=== PATIENT | female | born 1985 | race Caucasian/White ===

== ENCOUNTER 2016-05-11 00:16 | Emergency (ER) | payer OTHER ==
[~2016-05-11 00:16] MED LIST: AMITRIPTYLINE H25 MG PO; AMITRYPTYLINE PO; DICLOFENAC PO; FLEXERIL10 MG PO; LORTAB 5-325 M1 EACH PO; NEURONTIN100 MG PO; XANAX1 MG PO; [UNRECOGNIZED DRUG - REMARK]
== END 2016-05-11 00:25 | disposition left against medical advice (07) ==
LOC: SED 00:16
DX: Z53.21 Procedure and treatment not carried out due to patient leaving prior to being seen by health care provider (principal)

== ENCOUNTER 2016-08-18 12:18 | Inpatient (IN) | payer OTHER ==
--- NOTE | ~2016-08-18 | CT2 ---
[facility] A Service of [facility] RADIOLOGY TEXT RESULTS PATIENT: MARISOL VARGAS LOCATION: C2A : 87 UNIT #: [id number] AGE: [address]: Yair Brumfield MD SEX: F ORDER DR: [id number] [facility] [address] [place], [place] [address] [id number] MR#: [id number] #: [id number] NAME: MARISOL VARGAS : 1985 SEX: F STUDY DATE/TIME: 08/18/2016 16:03 UNIT: C2A ROOM: 220 STUDY DESCRIPTION: CT Abd and Pelv W Cont Attending Physician: Beth Garcia M.D. Ordering Physician: Colin Richardson M.D. Primary Care Physician: Carmine Han M.D. MEDICAL IMAGING REPORT This report is preliminary unless electronic signature is present EXAM CT abdomen and pelvis. HISTORY Abdomen pain since last p.m. One-half pack per day smoker. Right upper quadrant pain. Chronic back pain, anxiety, Hepatitis C, former heroin abuse. This CT exam was performed with one or more of the following radiation dose reduction techniques: automatic exposure control, adjustment of mA and/or kV according to patient size, and iterative reconstruction. FINDINGS CT abdomen and pelvis performed with intravenous administration of 100 mL Isovue-370. Enteric contrast not administered. No prior CTs of abdomen or pelvis for comparison. Comparison with any prior studies would be useful. Patchy and linear densities bilateral lung bases more pronounced on the right than left, probably atelectatic in nature. Components of mild right basilar pneumonitis could be considered. The inferior heart and pericardium are unremarkable. Liver, gallbladder unremarkable. The spleen is enlarged measuring up to about 14.4 cm in craniocaudal extent. No focal parenchymal abnormality is seen. The pancreas and adrenal glands are unremarkable. The left kidney and ureter are unremarkable. In the mid-right kidney there is an exophytic slightly irregularly contoured hypodense structure measuring 1.7 cm x 2.6 cm x 1.7 cm. There is subtle hypodensity in the renal parenchyma adjacent to this exophytic structure and there is extensive perinephric haziness and fat stranding extending superiorly and inferiorly from this exophytic renal structure. There is some subtle enhancement of the wall of the exophytic renal structure. Findings suggest an infectious or inflammatory process, possibly renal abscess with associated perinephric inflammatory change. Possibly superinfection of preexisting renal cyst. The ascending colon extends STS. [facility] A Service of [facility] RADIOLOGY TEXT RESULTS PATIENT: MARISOL VARGAS LOCATION: C2A 220-01 : 87 UNIT #: [id number] AGE: [address]: Yair Brumfield MD SEX: F ORDER DR: adjacent to this area of inflammatory change. There may be some mild reactive thickening of the posterior wall of the ascending colon. The bulk of the inflammatory abnormality appears centered around the hypodense exophytic renal structure. There is a small cyst in the upper pole of the right kidney. There is no right-sided hydronephrosis or hydroureter. There is a small amount of free fluid in the pelvis. Not drainable fluid collection. Presumed in part physiologic in nature and in part related to the more cephalad perinephric inflammatory change. CT PELVIS: No inguinal adenopathy. Urinary bladder is unremarkable. Evidence of prior tubal ligation. Surgical clip in the deep pelvis posteriorly. No pelvic or retroperitoneal adenopathy. Distal esophagus, stomach, small bowel unremarkable. Appendix not clearly identified but no pericecal inflammatory change is seen. Aside from changes in the ascending colon adjacent to the perirenal inflammation, the remainder of colon is unremarkable. The vascular structures unremarkable. Bony structures show mild disc degenerative change lower lumbar spine. No acute-appearing bony abnormality. Returning to the right renal findings above, there is a subtle area of diminished density along the intrarenal aspect of the above described exophytic hypoechoic structure. This is further suggestive of etiology as unusual exophytic renal abscess or a superinfected cyst. The inflammatory change in the right perinephric fat measures approximately 8.8 cm in craniocaudal extent x about 2.3 cm x 4.8 cm transversely. IMPRESSION 1. Abnormal examination. Please see the complete dictation above for full details. Predominant abnormality is centered at the mid right kidney and has an appearance suggesting a mid-right renal abscess with extension into the right perinephric fat. There is an area of renal and extrarenal hypodensity with some peripheral enhancement measuring 1.7 cm x 2.6 cm x 1.7 cm. In the perinephric fat adjacent to this partially exophytic hypodense area there is extensive inflammatory haziness and stranding and there may be some associated perinephric fluid. The overall area of inflammatory change measures about 4.8 cm x 2.3 cm transversely x about 8.8 cm in craniocaudal extent. I favor that this is a renal abscess with perinephric extension. The possibility of superinfected preexisting cyst is not excluded but I have no prior studies for comparison. Along the renal parenchymal interface with this structure there is some subtle hypodense parenchyma likely reflecting inflammatory edema and further supportive of renal parenchymal abscess. It is unclear if this represents a drainable abscess. I would recommend short-interval CT followup after treatment for renal abscess to ensure short interval improvement or resolution. 2. Ascending colon is immediately adjacent to the inflammatory change and there is some mild wall thickening in the posterior wall of the ascending colon. I do not believe that this is a primary colonic STS. [facility] A Service of [facility] RADIOLOGY TEXT RESULTS PATIENT: MARISOL VARGAS LOCATION: C2A 220-01 : 87 UNIT #: [id number] AGE: [address]: Yair Brumfield MD SEX: F ORDER DR: abnormality. The wall thickening in the colon is likely sympathetic related to adjacent inflammation. 3. No other acute appearing renal abnormalities. 4. Spleen is enlarged measuring about 14.4 cm in craniocaudal extent. No focal splenic abnormality. 5. Small amount of free fluid in the pelvis. Not a drainable fluid collection. This may in part be physiologic in nature and in part related to the inflammatory change adjacent to the right kidney. 6. The appendix is not clearly identified. There are some small linear hyperdensities in the region of the cecum which could represent surgical clips in the context of prior appendectomy. Patient gives no stated history of prior appendectomy. I see no acute pericecal inflammatory change. 7. Prior tubal ligation. 8. Some patchy and linear densities bilateral lung bases, right greater than left, probably atelectasis. Mild right basilar pneumonitis not excluded. See remainder of incidental findings in body of report above. Dictated by... Reg Schuster M.D. THIS IS AN ELECTRONICALLY VERIFIED REPORT Reg Schuster M.D. at 08/19/2016 11:31 AM Elizabeth TD: 08/19/2016 03:36 JOB #: [id number] MEDICAL IMAGING REPORT Page 1 of 1 COPY
--- NOTE | ~2016-08-18 | CT5 ---
[facility] A Service of [facility] RADIOLOGY TEXT RESULTS PATIENT: MARISOL VARGAS LOCATION: C2A : 87 UNIT #: [id number] AGE: [address]: Yair Brumfield MD SEX: F ORDER DR: [id number] [facility] [address] [place], [place] [address] [id number] I MR#: [id number] #: [id number] NAME: MARISOL VARGAS : 1985 SEX: F STUDY DATE/TIME: 08/22/2016 7:59 UNIT: C2A ROOM: 220 STUDY DESCRIPTION: CT Abdomen W Cont Attending Physician: Yair Brumfield M.D. Ordering Physician: Carmine Roman M.D. Primary Care Physician: Carmine Han M.D. MEDICAL IMAGING REPORT This report is preliminary unless electronic signature is present EXAM CT of the abdomen with contrast INDICATION Renal abscess. This was identified on a prior CT from August 18, 2016. TECHNIQUE Axial CT images were obtained from the dome of the diaphragm through the symphysis pubis following the administration of intravenous contrast material. This CT exam was performed with one or more of the following radiation dose reduction techniques: automatic exposure control, adjustment of mA and/or kV according to patient size, and iterative reconstruction. FINDINGS Images through the lung bases demonstrate trace right pleural effusion which is new when compared to the prior study. There is also some increasing atelectasis at the lung bases bilaterally. This patient has a low-attenuation collection arising from the right kidney measuring up to about 1.6 x 1.4 cm. This is again favored to represent small renal abscess but is not amenable to percutaneous drainage due to its small size. Again however, it has decreased in size when compared to the prior study. I do think inflammatory stranding around the right kidney has increased when compared to the prior exam with some additional involvement seen along the right iliopsoas muscle. Again however, this all appears to be inflammatory stranding without discrete drainable abscess. Patient has some splenomegaly of uncertain clinical significance with the spleen measuring up 14.8 cm in craniocaudal dimensions. Liver appears unremarkable as is the gallbladder. The stomach and proximal small bowel are within normal limits as are the adrenal glands and left kidney. Pancreas appears normal. No new areas of STS. [facility] A Service of [facility] RADIOLOGY TEXT RESULTS PATIENT: MARISOL VARGAS LOCATION: [facility] 220-01 : 87 UNIT #: [id number] AGE: [address]: Yair Brumfield MD SEX: F ORDER DR: decreased attenuation are seen within the right kidney. There is some low-attenuation lesions seen within the superior pole of the right kidney which may reflect either a small cyst or potentially even another small abscess. Again however it is not amenable to percutaneous drainage. Inflammatory stranding is seen tracking along the right pericolic gutter. Again, which may have worsened when compared to the prior examination. Patient's ascending colon does appear mildly thick-walled in this area. Certainly there is no evidence of obstruction. Review of bony windows does not demonstrate any aggressive osseous abnormalities. IMPRESSION 1. The patient has a small hypoattenuating area arising from the right kidney favored to represent the small renal abscess. It actually appears smaller on today's study when compared to the prior exam from August 18, and remains unamenable to percutaneous drainage due to its small size. There is persistent inflammatory stranding seen around the right kidney in this area which I think has worsened when compared to the prior exam. Again I am unable to identify a discrete drainable abscess. An additional low attenuation is seen within the superior pole of the right kidney which was also present on the prior study and could reflect either cyst or abscess. Again it is not amenable to drainage. 2. Splenomegaly of uncertain clinical significance. Please see the body of the report for any additional incidental findings. STAT * RESULT Dictated by... Kandace Kenney M.D. THIS IS AN ELECTRONICALLY VERIFIED REPORT Kandace Kenney M.D. at 08/22/2016 3:36 PM JJ/maria d TD: 08/22/2016 14:19 JOB #: [id number] MEDICAL IMAGING REPORT Page 1 of 1 COPY
--- NOTE | ~2016-08-18 | HP ---
Unit #: [id number] #: [id number] Patient: MARISOL VARGAS [id number] [address] [place], [place] [address] [id number] I MR#: [id number] NAME: MARISOL VARGAS ROOM: 67305 Age: 31 Sex: F Admission Date: 08/18/2016 : 1985 Attending Physician: Beth Garcia M.D. Primary Care Physician: Carmine Han M.D. HISTORY AND PHYSICAL CHIEF COMPLAINT Abdominal pain. HISTORY OF PRESENT ILLNESS The patient is a 31-year-old female with past medical history of polysubstance abuse, anxiety, depression and chronic back pain, who presented to the emergency department for evaluation of the above. The patient states that she was seen in an urgent care facility about two weeks ago where she was diagnosed with a urinary tract infection and completed a course of Bactrim. She states that her last dose was yesterday. She states that initially she had burning with urination but those symptoms resolved. Today she awoke from sleep around 5:00 a.m. with severe pain in her right side. She describes it as "stabbing." She states that it has been constant in nature. There are no exacerbating or alleviating factors. She denies any similar pain. She also reports temperature of 102.2 this morning. She has had nausea but no vomiting. She denies any diarrhea. In the emergency department a CT of the abdomen and pelvis was done and showed findings concerning for right renal abscess with extension into perinephric fat. Dr. Richardson, the emergency room physician, spoke with Dr. Ruiz of urology who agrees to see the patient in consultation. She was given clindamycin and vancomycin. She is being admitted to [facility] for evaluation and further treatment. PAST MEDICAL HISTORY 1. Admission to [facility] April 23-2014 for depression and heroin use. 2. Anxiety/depression. 3. Chronic neck and back pain, not currently in pain management but the patient has an appointment with an unknown pain management physician in the future. PAST SURGICAL HISTORY 1. Cholecystectomy. 2. Tubal ligation. 3. Foot surgery. SOCIAL HISTORY The patient is currently living with her aunt but she plans to move to [place] to be with her . She smokes a half pack of cigarettes daily. She has a history of IV drug use but states that her last use was two years ago. She denies alcohol use. She works as a call or contact centre team leader. Unit #: [id number] #: [id number] Patient: MARISOL VARGAS FAMILY HISTORY Family history is notable for her dad having nephrolithiasis. ALLERGIES Penicillin, natural rubber adhesive, Tramadol, Toradol. HOME MEDICATIONS Include: 1. Neurontin 100 mg b.i.d. 2. Flexeril 10 mg q.h.s. 3. Amitriptyline 25 mg q.h.s. REVIEW OF SYSTEMS A complete review of systems is negative except as indicated in the HPI. DIAGNOSTIC STUDIES IMAGING: CT of the abdomen and pelvis shows findings concerning for right renal abscess in the mid right kidney with extension into perinephric fat. There is also splenic enlargement. LABORATORY: Complete blood count notable for white blood cell count of 12.5. Comprehensive metabolic panel notable for sodium of 134, AST and ALT of 60 and 87 respectively, lipase is 16. Urinalysis notable for 1+ leukocyte esterase. PHYSICAL EXAMINATION VITAL SIGNS: Temperature is 98.4. Pulse 114. Respirations 18. Blood pressure 113/75. Oxygen saturation is 95% on room air. GENERAL: The patient is a female who is awake and alert, in no acute distress. HEENT: The head is atraumatic. Mucous membranes are moist. NECK: Neck is supple. Trachea is midline. CARDIOVASCULAR: Regular rate and rhythm. LUNGS: Lungs are clear to auscultation bilaterally with no increased work of breathing. ABDOMEN: Abdomen is soft. She is tender to palpation in the right upper and lower quadrants. There is no costovertebral angle tenderness to palpation. Bowel sounds present in all four quadrants. EXTREMITIES: Extremities are nontender with no pedal edema. NEUROLOGIC: The patient is awake and alert. She follows commands. PSYCHIATRIC: Mood and affect are normal. The patient is cooperative. SKIN: Skin of examined areas is warm and dry. ASSESSMENT The patient is a 31-year-old female with: 1. Right renal abscess. The patient received clindamycin and vancomycin in the emergency department. 2. Sepsis. 3. Transaminitis. 4. Anxiety/depression. 5. Chronic low back pain. 6. History of polysubstance abuse with last IV drug use being two years ago. 7. Tobacco abuse. PLAN 1. Admit to med/surg. Unit #: [id number] #: [id number] Patient: MARISOL VARGAS 2. N.p.o. until seen by Urology. 3. Normal saline at 125 mL an hour. 4. Blood cultures x2. 5. Urine culture and sensitivity on urine in the lab. 6. Vancomycin IV and clindamycin IV pending further workup. 7. Consult Dr. Ruiz regarding renal abscess. 8. Sepsis protocol with STAT lactic acid. 9. P.r.n. Zofran. 10. P.r.n. morphine. 11. P.r.n. Tylenol. 12. Urine tox screen. 13. Check CRP and sed rate. 14. Repeat labs in the morning. 15. SCDs for DVT prophylaxis. 16. Additional workup and consultants based on above. Dictated by Darwin Ramirez/aziza TD: 08/18/2016 19:38 JOB #: [id number] HISTORY AND PHYSICAL Page 1 of 1 X Beth Garcia MD X HISTORY AND PHYSICAL
--- NOTE | ~2016-08-18 | CO ---
Unit #: [id number] #: [id number] Patient: MARISOL VARGAS [id number] [address] [address] [id number] I MR#: [id number] NAME: MARISOL VARGAS ROOM: 220 Age: 31 Sex: F Admission Date: 08/18/2016 : 1985 Attending Physician: Yair Brumfield M.D. Primary Care Physician: Carmine Han M.D. CONSULTATION REPORT CHIEF COMPLAINT Abdominal pain. HISTORY OF PRESENT ILLNESS A 31-year-old woman with a history of heroin, IV drug abuse, hepatitis C, chronic pain, who presented with acute-onset right sided pain yesterday. Pain was severe. The patient also reports some fevers at home. Denies dysuria or gross hematuria. She also has some nausea. CT scan showed a 2.7 cm renal abscess, but also some perinephric inflammation consistent with a renal abscess. PAST MEDICAL HISTORY Anxiety, depression, chronic back and neck pain, heroin abuse, cholecystectomy, tubal ligation, foot surgery. SOCIAL HISTORY She smokes and states she has not been using illicit drugs. FAMILY HISTORY Positive for stones. ALLERGIES Penicillin, natural rubber adhesive, tramadol, Toradol. MEDICATIONS At home; Neurontin, Flexeril, amitriptyline. REVIEW OF SYSTEMS Negative for 10 points except for abdominal pain. PHYSICAL EXAMINATION VITAL SIGNS: Afebrile. Vital signs stable. Her pulse was 114 on admission. GENERAL: She is alert. She is oriented. Mild amount of distress. HEENT: Head is atraumatic. NECK: Supple. LUNGS: Benign. HEART: Benign. ABDOMEN: Soft. She is tender to palpation on the right side of her abdomen. EXTREMITIES: No clubbing, cyanosis, or edema. NEUROLOGIC: Cranial nerves II through X intact. PELVIC: Deferred. SKIN: No rash. Unit #: [id number] #: [id number] Patient: MARISOL VARGAS ASSESSMENT Renal abscess, illicit drug use, kidney function normal at 0.7. White count is normal 9.1 today. We will ask Interventional Radiology if this could be treated percutaneously. Thank you for the kind referral. Dictated by... Ra Ruiz M.D. YESICA/mahogany TD: 08/20/2016 07:59 JOB #: [id number] CONSULTATION REPORT Page 1 of 1 X Ra Ruiz MD CONSULTATION REPORT
--- NOTE | ~2016-08-18 | CT57 ---
[facility] A Service of [facility] RADIOLOGY TEXT RESULTS PATIENT: MARISOL VARGAS LOCATION: C2A - : [birth year] UNIT #: [id number] AGE: [address]: Yair Brumfield MD SEX: F ORDER DR: [id number] [facility] [address] [place], [place] [address] [id number] I MR#: [id number] Acc #: [id number] NAME: MARISOL VARGAS : 1985 SEX: F STUDY DATE/TIME: 08/22/2016 14:37 UNIT: C2A ROOM: 220 STUDY DESCRIPTION: CT Chest Wo Cont Attending Physician: Yair Brumfield M.D. Ordering Physician: Carmine Roman M.D. Primary Care Physician: Carmine Han M.D. MEDICAL IMAGING REPORT This report is preliminary unless electronic signature is present EXAM CT chest without contrast HISTORY Difficulty breathing for 3 days. Sepsis. Right renal abscess. Decreased right lower lung breath sounds on physical exam today. TECHNIQUE This CT exam was performed with one or more of the following radiation dose reduction techniques: automatic exposure control, adjustment of mA and/or kV according to patient size, and iterative reconstruction. FINDINGS CT chest without contrast demonstrates a small right pleural effusion and trace left pleural effusion with [id number]-[id number] atelectasis in the posterior right lower lobe and mild atelectasis in the posterior left lower lobe, with interval development of these findings in the lower chest as compared to CT 08/18/2016. No additional infiltrates. The remainder of the lungs are clear. No adenopathy. Findings in the upper abdomen include right perinephric stranding and low density mass in the lateral mid-right kidney, lateral right perinephric fluid versus soft tissue thickening, and [id number]-bd-icnxximl splenic enlargement. Please see CT abdomen today, reported separately. IMPRESSION 1. Very small right pleural effusion and trace left pleural effusion and mild atelectasis in the posterior lower lobes, right greater than left are new findings compared to CT 08/28/2016. 2. Remainder of the chest is unremarkable. No additional infiltrates. No adenopathy. Dictated by... [facility] A Service of [facility] RADIOLOGY TEXT RESULTS PATIENT: MARISOL VARGAS LOCATION: [facility] 220-01 : [birth year] UNIT #: [id number] AGE: [address]: Yair Brumfield MD SEX: F ORDER DR: Bernardino Wagner M.D. THIS IS AN ELECTRONICALLY VERIFIED REPORT Bernardino Wagner M.D. at 08/22/2016 10:53 PM Stefani TD: 08/22/2016 17:42 JOB #: [id number] MEDICAL IMAGING REPORT Page 1 of 1 COPY
--- NOTE | ~2016-08-18 | CO ---
Unit #: [id number] #: [id number] Patient: MARISOL VARGAS [id number] [address] [place], [place] [address] [id number] MR#: [id number] NAME: MARISOL VARGAS ROOM: 220 Age: 31 Sex: F Admission Date: 08/18/2016 : 1985 Attending Physician: Yair Brumfield M.D. Primary Care Physician: Carmine Han M.D. Consultation Date: 08/18/2016 CONSULTATION REPORT REASON FOR CONSULTATION Antibiotic management in patient with renal abscess. HISTORY OF PRESENT ILLNESS This is a 31-year-old female with a history of polysubstance abuse in the past. The patient reports that she went to an Urgent Care facility approximately 2 weeks ago, and she was told that she had a urinary tract infection. The patient reports after 3-4 days of p.o. Bactrim, her urinary frequency resolved. The patient took approximately 2 weeks of antibiotics, per the patient. Yesterday the patient noted to have some dry heaves, fever up to 102 degrees Fahrenheit and significant pain in her right flank area. The patient came to the emergency room for further evaluation. While here, the patient was worked up and was noted to have a renal abscess extending into her perinephric fat. The patient is currently awaiting IR drainage of this abscess, and ID was asked to evaluate. The patient was given vancomycin and clindamycin. PAST MEDICAL HISTORY Includes depression and heroin abuse. She was admitted to [facility] until April of 2014. Chronic neck pain. PAST SURGICAL HISTORY Includes cholecystectomy, tubal ligation and foot surgery. SOCIAL HISTORY The patient has a past history of heroin and tobacco abuse. She denies any alcohol abuse. The patient reports to me no IV drug use. ALLERGIES Penicillin, natural rubber adhesive, tramadol and Toradol. NOTE: The patient reports that she has taken Keflex in the past without difficulties. MEDICATIONS The patient was recently on Bactrim. The patient is currently on clindamycin and vancomycin. For other medications, please refer to the patient's MAR. REVIEW OF SYSTEMS The patient reports fever with occasional chills and sweats. She denies any chest pain, shortness of breath or cough. She denies any vomiting. Does report some nausea and dry heaves. She denies diarrhea. She reports Unit #: [id number] #: [id number] Patient: MARISOL VARGAS significant right flank pain. She denies any pain with urination at this time and denies any nonhealing wounds. PHYSICAL EXAM VITAL SIGNS: Temperature is 101.1 degrees Fahrenheit with a T maximum of 101.3 degrees Fahrenheit. Pulse is 107, blood pressure is 94/54, and respiratory rate is 18. GENERAL: This is a female in no apparent distress who is sitting in the bed comfortably. HEENT: Her pupils are equal. NECK: Her neck is supple. CARDIOVASCULAR: S1, S2. Regular rate and rhythm. PULMONARY: Clear to auscultation bilaterally with no wheezes or rhonchi noted. ABDOMEN: Positive bowel sounds. Soft and nontender except in her right flank area, which has significant tenderness to palpation. EXTREMITIES: No clubbing, cyanosis or edema. DIAGNOSTIC STUDIES LABS: BUN 8, creatinine 0.7, sodium 131, potassium 3.9, chloride 102, CO2 23, bilirubin 1.3, AST 41, ALT 61. Lactic acid 0.6. White blood cell count 9.1, which is improved from 12.5 on admission, hemoglobin 11.9, hematocrit 35.3, platelets 213. Urinalysis shows WBCs 2-5, negative RBCs, negative nitrites. Urine culture and blood culture are currently pending. DIAGNOSTIC IMAGING: CT scan of the abdomen and pelvis - Please see full report for complete details. In summary, the patient has an abnormal examination. Right kidney appears to have a mid right renal abscess with extension into the right perinephric fat that is 1.7 cm x 2.6 cm x 1.7 cm with associated stranding. IMPRESSION This is a 31-year-old female with recent treatment for a urinary tract infection with Bactrim for 2 weeks. The patient had resolution of urinary symptoms. However, now has fever and significant right-sided pain with a CT scan consistent with a right renal abscess extending into the perinephric fat. At this time, agree with IR to drain the abscess. Will follow up on the patient's blood cultures and urine culture results; however, the urinalysis is now unremarkable. Patient does have a history of a penicillin allergy; however, per the patient's report, she has taken Keflex in the past without difficulty. With this in mind, would recommend to discontinue clindamycin and will give ceftriaxone 2 grams IV q.24 hours and Flagyl 500 mg IV q.8 hours and continue vancomycin until cultures are known. If IR is able to drain the abscess, will recommend to send for Gram stain and culture. Will ask the nursing staff to call with any positive blood cultures. Will check a CBC and BMP in the a.m. Thank you for allowing us to participate in the care of this patient. Further recommendations to follow pending the patient's clinical course. Dictated by... Brooke Longo A.P.R.N. for Darwin Goetz/rodrigo Unit #: [id number] #: [id number] Patient: MARISOL VARGAS TD: 08/19/2016 12:29 JOB #: [id number] CONSULTATION REPORT Page 1 of 1 X X CONSULTATION REPORT
--- NOTE | ~2016-08-18 | CT134 ---
[facility] A Service of [facility] & [facility] RADIOLOGY TEXT RESULTS PATIENT: MARISOL VARGAS LOCATION: C2A - : [birth year] UNIT #: [id number] AGE: [address]: Yair Brumfield MD SEX: F ORDER DR: [id number] [facility] [address] [place], [place] [address] [id number] I MR#: [id number] Acc #: [id number] NAME: MARISOL VARGAS : 1985 SEX: F STUDY DATE/TIME: 08/19/2016 14:41 UNIT: C2A ROOM: 220 STUDY DESCRIPTION: CT Guide Attending Physician: Yair Brumfield M.D. Ordering Physician: Beth Garcia M.D. Primary Care Physician: Carmine Han M.D. MEDICAL IMAGING REPORT This report is preliminary unless electronic signature is present EXAM Attempted renal abscess aspiration HISTORY This 31-year-old lady who was recently noted to have a renal abscess with some associated edwin-inflammatory phlegmon. She has been referred for attempted fluid aspiration. PROCEDURE Procedure, risks, benefits, and alternatives to the procedure were explained to the patient, and signed informed consent was obtained. She was placed in the left lateral decubitus position. Preliminary CT scan was performed through the region of interest. An appropriate site overlying the patient's right perinephric phlegmon was selected. The overlying skin was marked. Patient was prepped and draped usual sterile fashion. Time-out was performed as per protocol. Of note, the low-attenuation lesion seen within the right kidney is not well seen on these images but they are unenhanced. The patient was marked, prepped and draped in the usual sterile fashion. Time-out was performed as per protocol. Skin and subcutaneous tissues were as with buffered lidocaine. Anesthesia needle was left in place. Repeat CT scan confirmed appropriate trajectory of the needle and I exchanged for a 20-gauge spinal needle which I advanced towards the phlegmon but despite multiple efforts. I was unable to aspirate any significant material and the procedure was subsequently terminated. Moderate sedation was provided to the patient. I supervised the IR nurse and monitored the patient's vital signs for a total of 5 minutes face to face time and she received 2 mg of Versed and 150 mcg of fentanyl and continuous monitoring was provided throughout the procedure. IMPRESSION No drainable fluid could be aspirated from this patient's right perinephric phlegmon. The tiny abscess identified within the right kidney STS. [facility] A Service of [facility] RADIOLOGY TEXT RESULTS PATIENT: MARISOL VARGAS LOCATION: A 220-01 : [birth year] UNIT #: [id number] AGE: [address]: Yair Brumfield MD SEX: F ORDER DR: is not well seen on these images. Dictated by... Kandace Kenney M.D. THIS IS AN ELECTRONICALLY VERIFIED REPORT Kandace Kenney M.D. at 08/22/2016 3:39 PM AFF/pcl TD: 08/20/2016 17:05 JOB #: [id number] MEDICAL IMAGING REPORT Page 1 of 1 COPY
--- NOTE | ~2016-08-18 | DS ---
Unit #: [id number] #: [id number] Patient: MARISOL VARGAS [id number] [address] [place], [place] [address] [id number] MR#: [id number] NAME: MARISOL VARGAS ROOM: 220 Age: Sex: F Admission Date: 08/18/2016 : 1985 Discharge Date: 08/23/2016 Attending Physician: Yair Brumfield M.D. Primary Care Physician: Carmine Han M.D. DISCHARGE SUMMARY DISCHARGE DIAGNOSES 1. Sepsis, secondary to right renal abscess. 2. Anxiety and depression. 3. Chronic low-back pain. 4. History of polysubstance. 5. Tobacco usage. PROCEDURE An attempt for percutaneous drainage through interventional radiology was done on August 19, 2016, but there was no fluid drainable per interventional radiology. DIAGNOSTIC STUDIES LABORATORY: On the day of discharge, the patient's labs are BMP: Glucose 105, BUN 6, creatinine 0.6, sodium 134, potassium 3.7, chloride 102, CO2 of 25, calcium 8.3. CBC with WBC of 7.3, RBC 3.74, hemoglobin 11.1, hematocrit 32.2, MCV 82, MCH 29.6, MCHC 34.4, RDW 12.6, platelets 276,000, MPV 6.9. IMAGING: CT abdomen and pelvis on August 18, 2016. Impression: An area of renal and extrarenal hypodensity and some peripheral enhancement measuring 1.7 cm x 2.6 cm x 1.7 cm and overall inflammatory change measures about 4.8 cm x 2.3 cm transversely, 8.8 in craniocaudal extent. This is favored to be renal parenchymal abscess. Also, ascending colon is immediately adjacent to the inflammatory change and there is some mild wall thickening in the posterior wall of the ascending colon. Spleen is enlarged measuring about 14.4 cm. No acute paracecal inflammatory change. Prior tubal ligation. CT abdomen and pelvis with contrast on August 22, 2016. Impression: Small hypoattenuating area arising from the right kidney favored to represent small renal abscess which is smaller than exam compared on August 18 and remains unamenable to percutaneous drainage due to its small size. Persistent inflammatory stranding seen around the right kidney which possibly is worsened when compared to the prior exam. Unable to identify a discrete drainable abscess. Low attenuation seen in the superior pole of the right kidney which also represents prior study. Could reflect cyst or abscess. Again, not amenable to drainage. Splenomegaly of uncertain clinical significance. CT chest without contrast on (1) . Impression: Very small right pleural effusion and trace left pleural effusion and mild atelectasis in the posterior lower lobes, right greater than left. There are new findings compared to CT dating (2) . Remainder of chest is Unit #: [id number] #: [id number] Patient: MARISOL VARGAS unremarkable. No additional infiltrates. No adenopathy. CONSULTANTS 1. [facility] with Dr. Ruiz and Dr. Roman. 2. Infectious disease with Dr. Bay. HOSPITAL COURSE The patient is a 31-year-old female with past medical history of polysubstance abuse, anxiety, depression, chronic low-back pain who presents to the emergency department due to symptom of abdominal pain. Patient was seen in emergency room about two weeks ago and was diagnosed with a UTI and completed a course of antibiotic with Bactrim. Patient stated that she had burning with urination, but the symptoms had resolved. On the morning of admission, she woke up around 5 o'clock with severe abdominal right-sided pain. She described the pain as stabbing. She stated that it was constant and there were no exacerbating or alleviating symptoms. She had denied similar severity of pain in that same location in the past. She reported fever of 102.2. She also had nausea but no vomiting. She had denied diarrhea. CT abdomen was done which revealed a right renal abscess. Dr. Richardson in the emergency department spoke with Dr. Ruiz of urology who recommended the patient be admitted for IV antibiotics with clindamycin, vancomycin and they will consult on the patient. Patient was admitted for right-sided renal abscess with sepsis and was given IV antibiotic. Nephrology had seen the patient in consultation as well as infectious disease. Patient was treated with empiric antibiotic until urine culture finalized with no growth as well as blood culture finalized with no growth. An attempt was made to drain the renal abscess on August 19 but this was unsuccessful per interventional radiology as the abscess was small in size. A repeat CT abdomen was done on August 22, 2016 and again stated that the abscess is small and amenable to percutaneous drainage. There was some stranding that had increased in size. Urology had seen the patient after the CT was done and felt that patient had resolving fever and normal white blood count with no growth in blood or urine. Therefore, there was no need for surgical intervention. Patient should be treated with continued oral pain medicine. At this time, infectious disease had finalized their recommendation for antibiotics to include ceftriaxone 2 g IV daily to be done at the short stay clinic for a total of four weeks. This will be completed on October 08, 2016. She will also get weekly CBC and BMP. At this time, patient will be discharged in stable condition to home to follow up with her family doctor in one to two weeks. She will follow up with Dr. Ruiz for a repeat CT abdomen and pelvis. DISCHARGE CONDITION Stable. DISCHARGE DIET Nonrestricted. Patient may be resumed to a regular diet as was prior to hospitalization. ACTIVITY Nonrestricted. Patient may resume to her activity as was prior to hospitalization with ambulating every day. DISCHARGE MEDICATIONS 1. Ceftriaxone 2 g daily through short stay clinic. 2. Prescription for pain medicine with [facility] 7.5/325 one tablet every six hours as needed. Prescription for 30 was given. Unit #: [id number] #: [id number] Patient: MARISOL VARGAS 3. She may resume her gabapentin 100 mg orally twice daily as well as Flexeril 10 mg orally at bedtime and amitriptyline 25 mg orally at bedtime. This dictation took 45 minutes to include patient education and to coordinate care. Dictated by... Darien Wheeler PA-C for Darwin Marcano TD: 08/26/2016 09:26 JOB #: [id number] DISCHARGE SUMMARY Page 1 of 1 X X DISCHARGE SUMMARY
[2016-08-18 13:34] LABS: BASOPHIL# 0.1 X10e3 (0-0.3); BASOPHIL% 0.5 % (0-2.5); DIFF IND NO; EOSINOPHIL# 0.1 X10e3 (0-0.7); EOSINOPHIL% 0.8 % (0.0-7.0); HEMATOCRIT 40.2 % (35.0-45.0); HEMOGLOBIN 13.6 gm/dL (12.0-16.0); LYMPHOCYTE# 2.3 X10e3 (1.0-3.5); LYMPHOCYTE% 18.1 % (17.0-45.0); MEAN CELL VOLUME 86.4 FL (83-96); MEAN CORPUSCULAR HEMOGLOBIN 29.3 PG (28-34); MEAN CORPUSCULAR HGB CONC 33.9 g/dL (30-36); MEAN PLATELET VOLUME 7.1 FL (6.5-11.5); MONOCYTE# 0.9 X10e3 (0-1.0); MONOCYTE% 7.4 % (3.0-12.0); NEUTROPHIL# 9.1 X10e3 (1.5-7.1); NEUTROPHIL% 73.2 % (40-75); PLATELET COUNT 258 X10e3 (140-420); RED BLOOD COUNT 4.65 X10e (3.90-5.30); WHITE BLOOD COUNT 12.5 X10e3 (4.0-10.5)
[2016-08-18 13:55] LABS: ALBUMIN SERUM 3.5 g/dL (3.5-5.0); BILIRUBIN, DIRECT 0.2 mg/dL (0.0-0.2); BILIRUBIN,INDIRECT 0.7 mg/dL (0.0-0.9); BILIRUBIN,TOTAL 0.9 mg/dL (0.2-2.0); BUN/CREATININE RATIO 14.28; CREATININE SERUM 0.7 mg/dL (0.6-1.4); GLOM FILT RATE Estimated 117.1 mL/min (>60); PROTEIN TOTAL SERUM 7.6 g/dL (6.0-8.3)
[2016-08-18 14:41] LABS: URINE SOURCE CLEAN CATCH
[2016-08-18 14:50] LABS: URINE APPEARANCE CLEAR; URINE BILIRUBIN NEG (NEG); URINE BLOOD NEG (NEG); URINE COLOR YELLOW; URINE GLUCOSE NEG (NEG); URINE KETONE NEG (NEG); URINE LEUKOCYTE ESTERASE 1+ (NEG); URINE NITRATE NEG (NEG); URINE PROTEIN NEG (NEG); URINE SPECIFIC GRAVITY 1.018 (1.003-1.035)
[2016-08-18 14:53] LABS: URBCS1 AUWI 0-2 /[HPF] (0-2); URINE BACTERIA AUWI NEG (NEGATIVE); URINE SQUAMOUS EPITHELIAL CELL OCC /[HPF]
[2016-08-18 14:56] LABS: CULTURE INDICATED? NO
[2016-08-18 21:28] LABS: AMPHETAMINE NEG (NEG); BARBITURATES NEG (NEG); BENZODIAZEPINES POS (NEG); COCAINE NEG (NEG); MARIJUANA NEG (NEG); OPIATES POS (NEG); TRICYCLIC ANTIDEPRESSANTS POS (NEG); U METHADONE NEG (NEG)
[2016-08-19 05:58] LABS: BASOPHIL% 0.3 % (0-2.5); EOSINOPHIL# 0.1 X10e3 (0-0.7); EOSINOPHIL% 1.1 % (0.0-7.0); HEMATOCRIT 35.3 % (35.0-45.0); HEMOGLOBIN 11.9 gm/dL (12.0-16.0); LYMPHOCYTE% 21.7 % (17.0-45.0); MEAN CELL VOLUME 87.5 FL (83-96); MEAN CORPUSCULAR HEMOGLOBIN 29.5 PG (28-34); MEAN CORPUSCULAR HGB CONC 33.7 g/dL (30-36); MEAN PLATELET VOLUME 7.2 FL (6.5-11.5); MONOCYTE% 10.7 % (3.0-12.0); NEUTROPHIL% 66.2 % (40-75); PLATELET COUNT 213 X10e3 (140-420); RED BLOOD COUNT 4.03 X10e (3.90-5.30); RED CELL DISTRIBUTION WIDTH 12.8 % (11.0-15.5); WHITE BLOOD COUNT 9.1 X10e3 (4.0-10.5)
[2016-08-19 06:01] LABS: DIFF IND NO
[2016-08-19 06:26] LABS: ALBUMIN SERUM 2.8 g/dL (3.5-5.0); BILIRUBIN,TOTAL 1.3 mg/dL (0.2-2.0); BUN/CREATININE RATIO 11.42; CALCIUM SERUM 8.1 mg/dL (8.4-10.2); CREATININE SERUM 0.7 mg/dL (0.6-1.4); GLOM FILT RATE Estimated 117.1 mL/min (>60); POTASSIUM 3.9 mmol/L (3.5-5.1); PROTEIN TOTAL SERUM 6.2 g/dL (6.0-8.3)
[2016-08-19 09:57] LABS: INR 1.1; PARTIAL THROMBOPLASTIN TIME 36.6 SECONDS (23.5-31.3); PROTHROMBIN TIME (PATIENT) 11.9 SECONDS (9.6-11.5)
[2016-08-20 05:18] LABS: HEMATOCRIT 33.7 % (35.0-45.0); HEMOGLOBIN 11.5 gm/dL (12.0-16.0); MEAN CELL VOLUME 86.8 FL (83-96); MEAN CORPUSCULAR HEMOGLOBIN 29.6 PG (28-34); MEAN PLATELET VOLUME 7.5 FL (6.5-11.5); RED BLOOD COUNT 3.88 X10e (3.90-5.30); RED CELL DISTRIBUTION WIDTH 12.7 % (11.0-15.5)
[2016-08-20 06:02] LABS: BUN/CREATININE RATIO 11.66; CREATININE SERUM 0.6 mg/dL (0.6-1.4); GLOM FILT RATE Estimated 123.2 mL/min (>60); POTASSIUM 3.6 mmol/L (3.5-5.1)
[2016-08-21 06:25] LABS: HEMOGLOBIN 10.6 gm/dL (12.0-16.0); MEAN CELL VOLUME 86.8 FL (83-96); MEAN CORPUSCULAR HEMOGLOBIN 29.7 PG (28-34); MEAN CORPUSCULAR HGB CONC 34.2 g/dL (30-36); MEAN PLATELET VOLUME 7.3 FL (6.5-11.5); RED BLOOD COUNT 3.57 X10e (3.90-5.30); RED CELL DISTRIBUTION WIDTH 12.5 % (11.0-15.5); WHITE BLOOD COUNT 7.9 X10e3 (4.0-10.5)
[2016-08-21 07:43] LABS: BUN/CREATININE RATIO 8.33; CALCIUM SERUM 8.3 mg/dL (8.4-10.2); CREATININE SERUM 0.6 mg/dL (0.6-1.4); GLOM FILT RATE Estimated 123.2 mL/min (>60); POTASSIUM 3.6 mmol/L (3.5-5.1)
[2016-08-22 05:13] LABS: HEMATOCRIT 31.7 % (35.0-45.0); HEMOGLOBIN 10.9 gm/dL (12.0-16.0); MEAN CORPUSCULAR HEMOGLOBIN 29.9 PG (28-34); MEAN CORPUSCULAR HGB CONC 34.3 g/dL (30-36); RED BLOOD COUNT 3.65 X10e (3.90-5.30); RED CELL DISTRIBUTION WIDTH 12.7 % (11.0-15.5); WHITE BLOOD COUNT 8.5 X10e3 (4.0-10.5)
[2016-08-22 06:04] LABS: BUN/CREATININE RATIO 8.33; CALCIUM SERUM 8.2 mg/dL (8.4-10.2); CREATININE SERUM 0.6 mg/dL (0.6-1.4); GLOM FILT RATE Estimated 123.2 mL/min (>60); POTASSIUM 3.3 mmol/L (3.5-5.1)
[2016-08-22 16:30] LABS: THYROID STIMULATING HORMONE 1.04 uIU/ml (0.34-5.60)
[2016-08-22 16:37] LABS: FREE THYROXIN (T4) 0.87 ng/dL (0.58-1.64)
[2016-08-23 06:09] LABS: HEMATOCRIT 32.2 % (35.0-45.0); HEMOGLOBIN 11.1 gm/dL (12.0-16.0); MEAN CORPUSCULAR HEMOGLOBIN 29.6 PG (28-34); MEAN CORPUSCULAR HGB CONC 34.4 g/dL (30-36); MEAN PLATELET VOLUME 6.9 FL (6.5-11.5); RED BLOOD COUNT 3.74 X10e (3.90-5.30); RED CELL DISTRIBUTION WIDTH 12.6 % (11.0-15.5); WHITE BLOOD COUNT 7.3 X10e3 (4.0-10.5)
[2016-08-23 06:57] LABS: CALCIUM SERUM 8.3 mg/dL (8.4-10.2); CREATININE SERUM 0.6 mg/dL (0.6-1.4); GLOM FILT RATE Estimated 123.2 mL/min (>60); POTASSIUM 3.7 mmol/L (3.5-5.1)
[2016-08-23] MEDS ORDERED: HYDROCODON-ACE1 EA14 PO (14:24)
[2016-08-27 11:25] LABS: HA AB IGM (HEPPAN) Nonreactive (()); HB CORE AB IGM (HEPPAN) Nonreactive (Nonreactive); HB S AG (HEPPAN) Nonreactive (Nonreactive); HEP C AB (HEPPAN) Reactive (Nonreactive)
== END 2016-08-23 15:43 | disposition home or self-care (01) | DRG 871 ==
LOC: CED 12:18 → C2A 18:40 → CEDOF 18:40 → CED 19:36 → CEDOF 19:36 → C2A 22:28 → CEDOF 22:28 → C2A 08-19 08:36
PROVIDERS: Emergency Medicine; Family Medicine; Physician Assistant Medical; Urology
PROC: 0T903ZZ Drainage of Right Kidney, Percutaneous Approach (ICD-10-PCS; principal; 2016-08-19)
DX: A41.9 Sepsis, unspecified organism (principal); N15.1 Renal and perinephric abscess; N12 Tubulo-interstitial nephritis, not specified as acute or chronic; R74.0 Nonspecific elevation of levels of transaminase and lactic acid dehydrogenase [LDH]; F41.9 Anxiety disorder, unspecified; F32.9 Major depressive disorder, single episode, unspecified; M54.5 Low back pain; G89.29 Other chronic pain; F17.210 Nicotine dependence, cigarettes, uncomplicated; Z88.0 Allergy status to penicillin; Z90.49 Acquired absence of other specified parts of digestive tract; Z98.51 Tubal ligation status; F11.10 Opioid abuse, uncomplicated; Z91.040 Latex allergy status; B96.20 Unspecified Escherichia coli [E. coli] as the cause of diseases classified elsewhere
CPT/HCPCS: 36415; 71250; 74160; 74177; 75989; 77012; 80048; 80053; 80074; 80076; 80202; 80307; 81003; 83605; 83690; 84439; 84443; 84703; 85025; 85027; 85610; 85652; 85730; 86140; 87040; 87086; 87522; 87806; 96361; 96372; 96374; 96375; 99285; C9113; J0500; J0595; J0696; J1170; J2250; J2270; J2405; J3010; J3370; Q9967

== ENCOUNTER → 2016-08-24 | Outpatient (CLI) | payer OTHER ==
[~2016-08-24] MED LIST changes: +DESYREL50 MG PO; +HYDROCODON-ACE1 EA14 PO
== END | disposition home or self-care (01) ==
LOC: CSSDAY 07:29
DX: N15.1 Renal and perinephric abscess (principal); Z79.2 Long term (current) use of antibiotics
CPT/HCPCS: 96374; J0696

== ENCOUNTER 2016-10-30 15:08 | Emergency (ER) | payer OTHER ==
--- NOTE | ~2016-10-30 | CR63 ---
[facility]. [facility] A Service of [facility] & [facility] RADIOLOGY TEXT RESULTS PATIENT: MARISOL VARGAS LOCATION: SED : [birth year] UNIT #: [id number] AGE: [address]: RAMIREZ CABALLERO PA-C SEX: F ORDER DR: [id number] [address] [address] [id number] MR#: [id number] Acc #: [id number] NAME: MARISOL VARGAS : 1985 SEX: F STUDY DATE/TIME: 10/30/2016 15:42 UNIT: SED ROOM: STUDY DESCRIPTION: CR Chest 2 View Attending Physician: Ramirez Caballero Pa-C Ordering Physician: Ramirez Caballero Pa-C Primary Care Physician: Carmine Han M.D. MEDICAL IMAGING REPORT This report is preliminary unless electronic signature is present. EXAM PA and lateral chest HISTORY Cough for 2 days. Congestion. FINDINGS PA and lateral examination of the chest upright shows a good expansion of the parenchyma with a normal distribution of the pulmonary vascularity. There is no indication of congestion, effusion, infiltrate, tumor, or nodular density. The pleural reflections and diaphragmatic contours are normal. The cardiac silhouette and mediastinal anatomy is within normal limits. IMPRESSION Normal chest. Dictated by... Bernardino Wagner M.D. THIS IS AN ELECTRONICALLY VERIFIED REPORT Bernardino Wagner M.D. at 10/30/2016 11:13 PM DFL/to TD: 10/30/2016 20:23 JOB #: [id number] MEDICAL IMAGING REPORT Page 1 of 1
[~2016-10-30 15:08] MED LIST changes: -DESYREL50 MG PO
[2016-10-30] MEDS ORDERED: DESYREL50 MG PO (15:13)
== END 2016-10-30 16:30 | disposition home or self-care (01) ==
LOC: SED 15:08
DX: J06.9 Acute upper respiratory infection, unspecified (principal); F41.9 Anxiety disorder, unspecified; F32.9 Major depressive disorder, single episode, unspecified; F17.200 Nicotine dependence, unspecified, uncomplicated; Z90.49 Acquired absence of other specified parts of digestive tract; Z86.19 Personal history of other infectious and parasitic diseases; Z79.899 Other long term (current) drug therapy; Z88.0 Allergy status to penicillin; Z88.5 Allergy status to narcotic agent; Z88.6 Allergy status to analgesic agent; Z91.040 Latex allergy status
CPT/HCPCS: 71020; 87651; 99283